=== PATIENT | male | born 1960 | race Caucasian/White ===

== ENCOUNTER → 2017-05-19 | Outpatient (CLI) | payer OTHER | LOC: CIMAGING 08:37 | PROVIDERS: ATTEND Internal Medicine Gastroenterology | DX: K70.31 Alcoholic cirrhosis of liver with ascites (principal) | CPT/HCPCS: 76705-PO ==

== ENCOUNTER → 2018-02-11 | Outpatient (CLI) | payer BC ==
[~2018-02-11] MED LIST: IOPAMIDOL (ISOVUE-300) 100 ML BTL ONE
== END ==
LOC: CIMAGING 13:52
PROVIDERS: ATTEND Internal Medicine Gastroenterology
DX: R18.8 Other ascites (principal); K74.60 Unspecified cirrhosis of liver
CPT/HCPCS: 74160-PO; Q9967

== ENCOUNTER 2018-02-17 11:20 | Day surgery (SDC) | payer BC ==
[2018-02-17] MEDS ORDERED: MIDAZOLAM 2 MG/2 ML VIAL IVP PRN (11:52)
[2018-02-17] MEDS ORDERED: NALOXONE HCL 0.4 MG/ML INJ IVP PRN (11:52)
[2018-02-17] MEDS ORDERED: HEPARIN 10,000 UNIT/10 ML MDV (1,000 UNIT/ML) IVP PRN (11:52)
[2018-02-17] MEDS ORDERED: PROTAMINE SULFATE 50 MG/5 ML VIAL IVP PRN (11:52)
[2018-02-17] MEDS ORDERED: MEPERIDINE 25 MG/ML SYR IVP PRN (11:52)
[2018-02-17] MEDS ORDERED: ALTEPLASE 2 MG VIAL IVP PRN (11:52)
[2018-02-17] MEDS ORDERED: FLUMAZENIL 0.5 MG/5 ML MDV IVP PRN (11:52)
[2018-02-17] MEDS ORDERED: GLUCAGON HCL 1 MG VIAL IVP PRN (11:52)
[2018-02-17] MEDS ORDERED: fentaNYL 100 MCG/2 ML INJ IVP PRN (11:52)
[2018-02-17] MEDS ORDERED: NS 1,000 ML IV SCH (12:00)
--- NOTE | 2018-02-17 12:36 | PDPROPOC ---
Sedation Plan of Care Sedation Plan of Care: vital signs stable, mental status noted, patient educated of risks, benefits, alternatives, patient can tolerate sedation ASA Classification: ASA 2 Planned drugs: fentanyl, midazolam Mallampati Score: Class 2 Mallampati Reference Image: Patient passed 3-3-2 rule?: Yes
--- NOTE | 2018-02-17 12:37 | PDRADPRE ---
Radiology History & Physical Indication for procedure: liver disease (Portal hypertension with refractory ascites. 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 Plan for recanalization of TIPS with revision.) Home medications: Nadolol 20 mg PO DAILY 03/22/14 [Last Taken Unknown] Omeprazole 40 mg PO DAILY 03/22/14 [Last Taken Unknown] Advil 400 mg PO BID PRN 02/15/18 [Last Taken Unknown] Aleve Pm Caplet 2 cap PO HS 02/15/18 [Last Taken Unknown] Furosemide 20 mg PO BID 02/15/18 [Last Taken Unknown] Spironolactone 50 mg PO DAILY 02/15/18 [Last Taken Unknown] Allergies/Adverse Reactions: No Known Allergies Allergy (Verified 03/22/14 08:15) Mental status: A&Ox3 Heart exam: regular rate and rhythm Lungs exam: clear to auscultation Mallampati Score: Class 2
[2018-02-17 13:19] LABS: INR 1.12 (0.83-1.16); PROTIME(PATIENT) 14.6 SEC (12.0-15.0)
[2018-02-17] MEDS ORDERED: NALOXONE HCL 0.4 MG/ML INJ ONE (13:25)
[2018-02-17] MEDS ORDERED: MIDAZOLAM 2 MG/2 ML VIAL ONE ×5 (13:25→15:27)
[2018-02-17] MEDS ORDERED: FLUMAZENIL 0.5 MG/5 ML MDV IVP ONE (13:25)
[2018-02-17] MEDS ORDERED: fentaNYL 100 MCG/2 ML INJ ONE ×5 (13:25→15:28)
[2018-02-17] MEDS ORDERED: ALBUMIN 25% 100 ML SOLN IV ONE ×2 (14:40→15:39)
[2018-02-17] MEDS ORDERED: oxyCODONE IR 5 MG TAB PO PRN (16:24)
[2018-02-17] MEDS ORDERED: ONDANSETRON 4 MG/2 ML VIAL IVP PRN (16:24)
--- NOTE | 2018-02-17 16:28 | PDRADPN ---
Radiology Procedure Note Date of Procedure: 02/17/18 Radiologist: Sriram Pan Anesthesia: IV Sedation Pre-op Diagnosis: Portal HTN Post-op Diagnosis: Portal HTN Indication: Refractory ascites, chronically occluded TIPS Procedure: TIPS Revision; Paracentesis Finding(s): Unable to recanalize TIPS (chronically occluded for 8 years) antegrade or retrograde. Paracentesis with 7300 mL drained. Inf/Abcess present in the surg proc area at time of surgery?: No
[2018-02-17] MEDS ORDERED: IOPAMIDOL (ISOVUE-300) 100 ML BTL ONE (16:58)
[2018-02-17 17:05] VITALS: BP 110/70
== END 2018-02-17 17:20 | disposition home or self-care (01) ==
LOC: FIMAGING 11:20
PROVIDERS: ATTEND Radiology Vascular & Interventional Radiology
DX: T82.898A Other specified complication of vascular prosthetic devices, implants and grafts, initial encounter (principal); K76.6 Portal hypertension; K74.60 Unspecified cirrhosis of liver; R18.8 Other ascites
CPT/HCPCS: J2250; J2310; J3010; P9047; Q9967

== ENCOUNTER 2018-04-08 11:40 | Observation (INO) | payer BC ==
[2018-04-08] MEDS ORDERED: MIDAZOLAM 2 MG/2 ML VIAL IVP PRN (11:52)
[2018-04-08] MEDS ORDERED: fentaNYL 100 MCG/2 ML INJ IVP PRN ×2 (11:52→15:38)
[2018-04-08] MEDS ORDERED: NALOXONE HCL 0.4 MG/ML INJ IVP PRN ×2 (11:52→15:38)
[2018-04-08] MEDS ORDERED: MEPERIDINE 25 MG/ML SYR IVP PRN (11:52)
[2018-04-08] MEDS ORDERED: FLUMAZENIL 0.5 MG/5 ML MDV IVP PRN (11:52)
[2018-04-08] MEDS ORDERED: ceFAZolin 2 GM/DEXTROSE 100 ML IV ONE (11:52)
[2018-04-08] MEDS ORDERED: NS 1,000 ML IV SCH (12:00)
[2018-04-08 12:42] LABS: PLATELET COUNT 227 10^3/uL (150-400)
[2018-04-08 12:48] LABS: INR 1.13 (0.83-1.16); PROTIME(PATIENT) 14.7 SEC (12.0-15.0)
--- NOTE | 2018-04-08 12:57 | PDRADPRE ---
Radiology History & Physical Indication for procedure: liver disease (Chronically occluded TIPS unable to recanalize. Plan for parallel TIPS placement. Refractory ascites. MELD 8. Normal bilirubin. ) Home medications: Nadolol 20 mg PO DAILY 03/22/14 [Last Taken 02/16/18] Omeprazole 40 mg PO DAILY 03/22/14 [Last Taken 02/16/18] Advil 400 mg PO BID PRN 02/15/18 [Last Taken 02/16/18] Aleve Pm Caplet 2 cap PO HS 02/15/18 [Last Taken 02/16/18] Furosemide 20 mg PO BID 02/15/18 [Last Taken 02/16/18] Spironolactone 50 mg PO DAILY 02/15/18 [Last Taken 02/16/18] Allergies/Adverse Reactions: No Known Allergies Allergy (Verified 03/22/14 08:15) Mental status: A&Ox3 Heart exam: regular rate and rhythm Lungs exam: clear to auscultation Mallampati Score: Class 2
[2018-04-08] MEDS ORDERED: IOPAMIDOL (ISOVUE-300) 100 ML BTL ONE ×3 (13:08→16:04)
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
[2018-04-08] MEDS ORDERED: MIDAZOLAM 2 MG/2 ML VIAL ONE (13:17)
[2018-04-08] MEDS ORDERED: PROPOFOL 200 MG/20 ML VIAL ONE (13:18)
[2018-04-08] MEDS ORDERED: fentaNYL 100 MCG/2 ML INJ ONE ×3 (13:18→16:04)
[2018-04-08] MEDS ORDERED: METOCLOPRAMIDE 10 MG/2 ML VIAL ONE (14:42)
[2018-04-08] MEDS ORDERED: ROCURONIUM 50 MG/5 ML VIAL ONE ×2 (14:42→14:43)
[2018-04-08] MEDS ORDERED: ONDANSETRON 4 MG/2 ML VIAL IVP PRN (15:22)
[2018-04-08] MEDS ORDERED: PROMETHAZINE HCL 25 MG/ML INJ IVP PRN (15:22)
[2018-04-08] MEDS ORDERED: BISACODYL 10 MG SUPP PR PRN (15:22)
[2018-04-08] MEDS ORDERED: ALBUMIN 25% 200 ML IV ONE (15:26)
[2018-04-08] MEDS ORDERED: LR 500 ML IV PRN (15:38)
--- NOTE | 2018-04-08 15:39 | POSTANESTH ---
Post Anesthetic Evaluation Cardiovascular Status: Normal, Stable Respiratory Status: Normal, Stable Level of Consciousness/Mental Status: Can Participate in Eval Pain Control: Adequate, Prn Tx Ordered Nausea/Vomiting Control: Adequate, Prn Tx Ordered Complications Possibly Related to Anesthesia: None Noted
[2018-04-08] MEDS ORDERED: KETOROLAC 30 MG/1 ML SDV ONE (16:04)
[2018-04-08] MEDS: KETOROLAC 30 MG/1 ML SDV IVP PRN (16:06)
[2018-04-08] MEDS: oxyCODONE IR 5 MG TAB PO PRN ×2 (17:46→23:24)
[2018-04-08] MEDS ORDERED: NADOLOL 20 MG TAB PO SCH (19:30)
[2018-04-08] MEDS ORDERED: PANTOPRAZOLE SODIUM 40 MG TAB PO SCH (19:30)
[2018-04-09] MEDS: oxyCODONE IR 5 MG TAB PO PRN (03:53)
[2018-04-09] MEDS: KETOROLAC 30 MG/1 ML SDV IVP PRN (09:25)
[2018-04-09] MEDS: FUROSEMIDE 20 MG TAB PO SCH ×2 (09:25→19:27)
--- NOTE | 2018-04-09 12:05 | ASMTCMCOM ---
CM Note CM Note Notes: Pt is a 57 y/o man admitted for portal hypertension. Pt will most likely d/c independent when medically stable. No therapies ordered at this time. CM available for changes. Plan: Independent Date Signed: 04/09/2018 12:04 PM Electronically Signed By:ERNESTO Thomas
[2018-04-09 13:06] VITALS: BP 92/60
[2018-04-09] MEDS ORDERED: IBUPROFEN 200 MG TAB PO SCH (18:00)
[2018-04-09] MEDS ORDERED: DIPHENHYDRAMINE PO SCH (22:00)
[2018-04-09] MEDS ORDERED: NAPROXEN SOD PO SCH (22:00)
== END 2018-04-09 16:02 | disposition home or self-care (01) ==
LOC: FIMAGING 11:40 → F3N 15:23 → INTOOBSV 15:23 → F3E 17:10
PROVIDERS: ADMIT Radiology Vascular & Interventional Radiology; ATTEND Radiology Vascular & Interventional Radiology
DX: T82.898A Other specified complication of vascular prosthetic devices, implants and grafts, initial encounter (principal); K76.6 Portal hypertension; K70.31 Alcoholic cirrhosis of liver with ascites
CPT/HCPCS: 37182; 49083; 75889; C1769; C1887; G0378; C1725; C1874; J0690; J1644; J1885; J2250; J2704; J2765; J3010; P9047; Q9967